=== PATIENT | female | born 1985 | race Two or more races ===

== ENCOUNTER 2016-06-05 23:59 | Inpatient (IN) | payer MEDICAID ==
[~2016-06-05] VITALS: Ht 162.6 cm; Wt 113.4 kg
[2016-06-06] VITALS (33 sets, daily range): BP systolic 97–144; BP diastolic 52–86
[2016-06-06] MEDS ORDERED: UNOBMED (00:01)
--- NOTE | 2016-06-06 00:05 | Emergency Room Report ---
History of Present Illness General Chief Complaint: Altered Level of Consciousness Source: Family Member, EMS Present Illness HPI This is a 31-year-old female brought in by EMS for alcohol intoxication and overdose. Per family, patient has been depressed because she lost her job, her apartment, and broke up with her boyfriend. She's been drinking more. She's been expressing suicidal thoughts her family. Chest moving with her parents. She was drinking heavily tonight and was unresponsive. Parents does not know if she took anything else. Is no trauma. Unable to give history because of her severe intoxication. I was able to get better history when her family came. According to her sister , patient is been drinking heavily. She been expressing suicidal thoughts. Stated that she wants to take pills an overdose. She seen her primary care DrDee in the past and prescribed antidepressant medication. Today did not see her for a while so they got concerned. They checked up on her. She was found in her car passed out. She had vomited. Her sisters saw pill fragments in the vomitus. There were no medication bottles nearby. There were rum bottles. Her sister also endorsed that patient is sometime hear and sees things that are not there. Allergies: Coded Allergies: UNABLE TO ASSESS (Unverified , 06/06/16) Patient History Past Medical History: see triage record, old chart reviewed Past Surgical History: none Pertinent Family History: none Social History: Reports: alcohol use Now: No Immunizations: other Reviewed Nursing Documentation: PMH: Agreed, PSxH: Agreed Nursing Documentation-PMH Past Medical History: Deferred Review of Systems All Other Systems: limited - Unable to obtain secondary to intoxication Physical Exam Vital Signs Date Time Temp Pulse Resp B/P Pulse Ox O2 Delivery O2 Flow Rate FiO2 06/05/16 23:56 104 20 144/90 97 Room Air vitals normal Sp02 EP Interpretation: reviewed, normal General Appearance: well appearing, no apparent distress, other - Strong smell of alcoholic beverage on breath, Stupor Head: normocephalic, atraumatic Eyes: bilateral eye EOMI, bilateral eye PERRL - Pupils 5 mm and reactive ENT: hearing grossly normal, normal pharynx Neck: full range of motion, supple, no meningismus Respiratory: chest non-tender, lungs clear, normal breath sounds Cardiovascular #1: regular rate, rhythm, no murmur Gastrointestinal: normal bowel sounds, non tender, no mass, no organomegaly, no bruit, non-distended Musculoskeletal: back normal, normal range of motion Neurologic: other - No focal deficit Skin: warm/dry Medical Decision Making Diagnostic Impression: Primary Impression: Altered level of consciousness Additional Impressions: Toxic metabolic encephalopathy Alcohol poisoning Qualified Codes: T51.92XA - Toxic effect of unspecified alcohol, intentional self-harm, initial encounter Suicidal overdose Qualified Codes: T50.902A - Poisoning by unspecified drugs, medicaments and biological substances, intentional self-harm, initial encounter Morbid obesity with BMI of 40.0-44.9, adult Alcoholic hepatitis without ascites ER Course She presents with severe alcohol intoxication. Level is concerning for possible poisoning. Will admit for monitoring and hydration. Is also question overdose. She is not medically clear yet for psychiatric evaluation. EKG Diagnostic Results Rate: normal Rhythm: NSR ST Segments: no acute changes Rhythm Strip Diag. Results EP Interpretation: yes Rate: 80 Rhythm: NSR, no PVC's, no ectopy Last Vital Signs Date Time Temp Pulse Resp B/P Pulse Ox O2 Delivery O2 Flow Rate FiO2 06/05/16 23:56 104 20 144/90 97 Room Air Status: improved Disposition: ADMITTED INPATIENT RAJINDER JOHNSTON M.D. Jun 06, 2016 00:05
[2016-06-06 00:40] LABS: EOSINOPHILS % (AUTO) 1.9 % (0.0-3.0); LYMPHOCYTES % (AUTO) 43.9 % (20.0-45.0); MEAN CORPUSCULAR HEMOGLOBIN 32.5 PG (27.0-31.0); MEAN CORPUSCULAR VOLUME 95 FL (80-99); MEAN PLATELET VOLUME 6.3 FL (6.5-10.1); MONOCYTES % (AUTO) 5.1 % (1.0-10.0); NEUTROPHILS % (AUTO) 48.2 % (45.0-75.0); PLATELET COUNT 327 K/UL (150-450); RED BLOOD COUNT 4.54 M/UL (4.20-5.40); RED CELL DISTRIBUTION WIDTH 11.5 % (11.6-14.8); WHITE BLOOD COUNT 9.7 K/UL (4.8-10.8)
[2016-06-06 00:42] LABS: APPEARANCE,URINE SLIGHTLY CLOUDY; KETONES,URINE 1+ (NEGATIVE); LEUKOCYTE ESTERASE ,URINE 1+ (NEGATIVE); NITRITE,URINE NEGATIVE (NEGATIVE); PH,URINE 5 (4.5-8.0); PROTEIN,URINE 2+ (NEGATIVE); UROBILINOGEN,URINE NORMAL MG/DL (0.0-1.0)
[2016-06-06 00:48] LABS: BACTERIA,URINE FEW /HPF; SQUAMOUS EPITHELIAL CELL,UR FEW /LPF (NONE/OCC)
[2016-06-06 00:52] LABS: ACETAMINOPHEN < 10 ug/mL (10-30); ALANINE AMINOTRANSFERASE 191 U/L (3-33); ALBUMIN/GLOBULIN RATIO 1.1 (1.0-2.7); ANION GAP 33 (5-15); ASPARTATE AMINO TRANSFERASE 167 U/L (5-40); CALCIUM 8.3 mg/dL (8.6-10.2); CARBON DIOXIDE 21 mEQ/L (20-30); CHLORIDE 92 mEQ/L (98-107); CREATININE 0.7 mg/dL (0.5-0.9); GLOMERULAR FILTRATION RATE > 60 mL/min (>60); HEMOLYSIS 8; POTASSIUM 3.6 mEQ/L (3.4-4.9); SODIUM 146 mEQ/L (135-145); TOTAL PROTEIN 7.7 g/dL (6.6-8.7)
[2016-06-06 01:14] LABS: ALCOHOL 688 mg/dL
[2016-06-06] MEDS ORDERED: LORazepam Inj 2mg/ml 1ml IV ONE (09:45)
[2016-06-06] MEDS ORDERED: FOLIC ACID1 MG ORAL (14:46)
[2016-06-06] MEDS ORDERED: TRINATAL RX 11 EACH PO (14:46)
[2016-06-06] MEDS ORDERED: ZOCOR40 MG ORAL (14:46)
[2016-06-06] MEDS ORDERED: Atorvastatin 20mg tab ORAL SCH (21:00)
[2016-06-06] MEDS: LORazepam Inj 2mg/ml 1ml IV PRN (23:19)
[2016-06-07] VITALS: BP 146/84
[2016-06-07] MEDS: LORazepam Inj 2mg/ml 1ml IV PRN (01:12)
[2016-06-07] MEDS ORDERED: guaiFENesin DM 100mg/5ml ORAL PRN ×2 (02:30→20:00)
--- NOTE | 2016-06-07 03:26 | History and Physical Report ---
DATE OF ADMISSION: 06/06/2016 REASON FOR ADMISSION: Alcohol intoxication. HISTORY OF PRESENT ILLNESS: This is a 31-year-old female brought in for alcohol intoxication overdose. The patient, per family, has been depressed. The patient lost her job, break-up with the boyfriend. She has been drinking excessively. The patient apparently drank heavily and it came out as positive. The patient was admitted. Urine toxicology is otherwise negative. Apparently, she has been experiencing suicidal thoughts. PAST MEDICAL HISTORY: Otherwise negative. MEDICATIONS: None. ALLERGIES: None. PHYSICAL EXAMINATION: GENERAL: This is a well-developed female, in no significant distress. Strong smell of alcohol. HEENT: Pupils equal. NECK: Supple. LUNGS: Clear. CARDIAC: S1 and S2. Regular rate and rhythm. ABDOMEN: Soft. EXTREMITIES: No edema. NEUROLOGICAL: Grossly nonfocal. LABORATORY DATA: All reviewed, fairly benign overall with exception of apparently alcohol level seemed to be elevated. Sodium 146 and elevated liver enzymes. IMPRESSION: 1. Excessive alcohol intake with alcohol intoxication. 2. Alcoholic hepatitis. 3. Possible suicidal ideation. RECOMMENDATION: Admit. She will need hold. Psychiatric evaluation will be obtained. Intravenous hydration. Ativan as needed for withdrawal and monitor mental status changes. Clement Valencia M.D. DR: RUTH JOB#: [id number] CC:
[2016-06-07 04:00] VITALS: BP 132/78
[2016-06-07 08:00] VITALS: BP 130/82
--- NOTE | 2016-06-07 10:44 | General Progress Note ---
Assessment/Plan Assessment/Plan IMPRESSION: 1. Excessive alcohol intake with alcohol intoxication. 2. Alcoholic hepatitis. 3. Possible suicidal ideation. PLAN await psych evaluation denies suicidal ideation monitor for withdrawls Subjective Allergies: Coded Allergies: No Known Allergies (Unverified , 06/06/16) Subjective stable nad Objective Last 24 Hour Vital Signs Date Time Temp Pulse Resp B/P Pulse Ox O2 Delivery O2 Flow Rate FiO2 06/07/16 08:00 97.5 84 18 130/82 97 Room Air 06/07/16 04:00 95 06/07/16 04:00 98.0 91 18 132/78 96 Room Air 06/07/16 00:00 98.2 110 18 146/84 95 Room Air 06/07/16 00:00 91 06/06/16 20:00 98.6 114 18 122/68 97 Room Air 06/06/16 20:00 102 06/06/16 16:00 98.1 109 18 104/78 95 Room Air 06/06/16 16:00 105 06/06/16 15:35 103 21 114/79 97 Room Air 06/06/16 15:20 103 21 97 Room Air 06/06/16 15:15 115 16 99 Room Air 06/06/16 15:00 108 16 99 Room Air 06/06/16 14:45 115 16 99 Room Air 06/06/16 14:30 113 16 99 Room Air 06/06/16 14:15 105 16 99 Room Air 06/06/16 14:00 115 16 99 Room Air 06/06/16 13:51 98.0 112 16 111/62 100 Room Air 2.0 06/06/16 13:45 107 16 99 Room Air 06/06/16 13:30 109 16 99 Room Air 06/06/16 13:15 115 20 99 Room Air 06/06/16 13:00 120 20 99 Room Air 06/06/16 12:45 109 20 99 Room Air 06/06/16 12:30 111 17 99 Room Air 06/06/16 12:15 108 17 99 Room Air 06/06/16 12:00 113 15 99 Room Air 06/06/16 11:45 105 16 100 Room Air 06/06/16 11:30 111 16 120/65 100 Room Air 2.0 06/06/16 11:30 111 16 100 Room Air 06/06/16 11:15 105 16 100 Room Air 06/06/16 11:00 101 16 98 Room Air 06/06/16 10:45 108 14 100 Room Air Intake and Output 06/06/16 06/07/16 19:00 07:00 Intake Total 2000 ml 1790 ml Balance 2000 ml 1790 ml Intake Oral 690 ml IV Total 2000 ml 1100 ml # Voids 1 6 Height (Feet): 5 Height (Inches): 4.00 Weight (Pounds): 250 Objective GENERAL: This is a well-developed female, in no significant distress. Strong smell of alcohol. HEENT: Pupils equal. NECK: Supple. LUNGS: Clear. CARDIAC: S1 and S2. Regular rate and rhythm. ABDOMEN: Soft. EXTREMITIES: No edema. NEUROLOGICAL: Grossly nonfocal. PRISCILA BABCOCK Jun 07, 2016 10:44
[2016-06-07 12:00] VITALS: BP 130/90
[2016-06-07 16:10] VITALS: BP 133/81
[2016-06-07] MEDS ORDERED: LORazepam Inj 2mg/ml 1ml IV PRN (20:00)
[2016-06-07 20:10] VITALS: BP 145/95
[2016-06-07] MEDS ORDERED: Atorvastatin 20mg tab ORAL SCH (21:00)
[2016-06-08 00:10] VITALS: BP 132/79
[2016-06-08 04:30] VITALS: BP 119/74
[2016-06-08 07:49] VITALS: BP 138/86
[2016-06-08 11:59] VITALS: BP 135/87
[2016-06-08 16:01] VITALS: BP 138/90
[2016-06-08] MEDS ORDERED: Influenza Virus Vaccine 0.5ml IM ONE (17:00)
--- NOTE | 2016-06-09 23:57 | Consultation ---
History of Present Illness General Chief Complaint: Altered Level of Consciousness Present Illness HPI The pt was not suicidal/homicidal. She however has substance use disorder n was given referral to a psychiatrist and a program. she is cleared to be discharged Allergies: Coded Allergies: No Known Allergies (Unverified , 06/06/16) Medication History Scheduled Folic Acid* (Folic Acid*), 1 MG ORAL DAILY, (Reported) Simvastatin (Zocor), 40 MG ORAL BEDTIME, (Reported) Miscellaneous Medications Vit27&Calcium/Iron/Fa (Trinatal Rx 1 Tablet), 1 EACH PO, (Reported) Unable to Obtain Medications (Unable To Obtain Meds), (Reported) Patient History Healthcare decision maker Resuscitation status Full Code Advanced Directive on File Physical Exam Intake and Output 06/08/16 06/09/16 19:00 07:00 Intake Total 1280 ml Balance 1280 ml Intake Oral 480 ml IV Total 800 ml # Voids 4 Height (Feet): 5 Height (Inches): 4.00 Weight (Pounds): 250 Brett Gurrola M.D. Jun 09, 2016 23:57
--- NOTE | 2016-06-10 10:36 | Discharge Summary ---
Discharge Summary Hospital Course Date of Admission Jun 06, 2016 at 01:44 Date of Discharge Jun 08, 2016 at 16:55 Admitting Diagnosis Alcohol intoxication, Suicidal HPI Rosie Infante is a 31 year old female who was admitted on Jun 06, 2016 at 01:44 for Alcohol Intoxication,Suicidal Hospital Course [id number] Discharge Discharge Disposition Patient was discharged to Home (01) Discharge Diagnoses: Ghazala Mauricio NP Jun 10, 2016 10:36
--- NOTE | 2016-06-11 00:17 | Discharge Summary 2 SIG ---
DATE OF ADMISSION: 06/06/2016 DATE OF DISCHARGE: 06/08/2016 SLACKMAN: Brett Gurrola M.D. BRIEF HOSPITAL COURSE: The patient is a 31-year-old female, who was brought in for alcohol intoxication and overdose. The patient was reported to be depressed, lost her job, and had a break-up with boyfriend and has been drinking excessively. The patient was admitted. Urine toxicology was negative. Apparently, she has been experiencing suicidal thoughts. She was given IV hydration and p.r.n. Ativan and was provided a sitter. She was seen by Psychiatry Dr. Gurrola and assessed the patient is not suicidal or homicidal. However, she does have substance abuse disorder and was given referral to psychiatrist and Drug Rehab programs. She was cleared for discharge follow-up with PMD as outpatient. FINAL DIAGNOSES: 1. Excessive alcohol intake/alcohol abuse with alcohol intoxication. 2. Alcoholic hepatitis. 3. Substance abuse disorder. Clement Valencia M.D. I have been assigned to dictate discharge summary on this account and I was not involved in the patient's management. Ghazala Mauricio N.P. DR: CHELSEA JOB#: [id number] CC: DAR
--- NOTE | 2016-06-13 10:30 | Cardiology Report ---
APPROVED REPORT EKG Measurement Heart [id number] SD [id number] Normal sinus rhythm Rightward axis Cannot rule out Anterior infarct, age undetermined Abnormal ECG
== END 2016-06-08 16:55 | disposition home or self-care (01) | DRG 897 ==
LOC: ENRESERV → ENRESERVDT → ENRESERVTM → EDBD 23:59 → EMR 06-06 00:14 → EDBEDREQ 06-06 01:26 → 2W 06-06 01:44 → EDBEDREQ 06-06 07:36 → 4W 06-07 19:20
DX: F10.129 Alcohol abuse with intoxication, unspecified (principal); R45.851 Suicidal ideations; K70.10 Alcoholic hepatitis without ascites; Z68.41 Body mass index [BMI] 40.0-44.9, adult; E66.01 Morbid (severe) obesity due to excess calories; Z23 Encounter for immunization; Y90.8 Blood alcohol level of 240 mg/100 ml or more
CPT/HCPCS: 36415; 80053; 80300; 80329; 81003; 81025; 85025; 93005; Q2036